=== PATIENT | male | born 1985 | race Caucasian/White ===

== ENCOUNTER 2017-01-23 08:32 | Emergency (ER) | payer SELFPAY ==
[~2017-01-23] VITALS: Ht 172.7 cm; Wt 70.0 kg
[2017-01-23 08:32] VITALS: BP 132/71; PULSE 100; RESP 20; TEMP 98.8; O2SAT 96
[2017-01-23] MEDS ORDERED: CLIN300C5 PO (09:27)
[2017-01-23] MEDS ORDERED: DOXY100C PO (09:27)
[2017-01-23] MEDS ORDERED: IBUP-232 PO (09:27)
--- NOTE | 2017-01-23 09:28 | PD ---
HPI Chief Complaint: Wound/Suture/Staple Re-Check Time Seen by Provider: 09:22 Travel History International Travel<30 days: No Contact w/Intl Traveler<30days: No Traveled to known affect area: No History of Present Illness HPI 31-year-old male who presents to emergency room for evaluation of possible spider bite to his back. Patient reports that his sister noticed a bug bite to his right mid back yesterday, reports that it looked like a pimple so she did pop it. Patient reports concerns as this "hurts me" and was afraid that it may have been an abscess. Patient reports no fevers or chills, reports that his tetanus is not up-to-date. Patient reports the throbbing sensation to his mid right back with this "bite" is located. PFSH Past Medical History Heart Rhythm Problems: Yes (heart murmur) Past Surgical History Surgical History: No Previous Surgery Social History Alcohol Use: No Tobacco Use: Yes (1/2 ppd) Substance Use: No Allergies-Medications (Allergen,Severity, Reaction): Coded Allergies: ciprofloxacin (Verified Allergy, Severe, Hives, 01/23/17) sulfamethoxazole (Verified Allergy, Severe, Hives, 01/23/17) trimethoprim (Verified Allergy, Severe, Hives, 01/23/17) Reported Meds & Prescriptions Reported Meds & Active Scripts Active Ibuprofen 600 Mg Tab 600 Mg PO Q6H PRN Doxycycline Hyclate 100 Mg Cap 100 Mg PO BID 10 Days Clindamycin (Clindamycin HCl) 300 Mg Cap 300 Mg PO Q6H 10 Days Review of Systems General / Constitutional: No: Fever, Chills Eyes: No: Visual changes HENT: No: Headaches Cardiovascular: No: Chest Pain or Discomfort Respiratory: No: Shortness of Breath Gastrointestinal: No: Abdominal Pain Genitourinary: No: Dysuria Musculoskeletal: No: Pain Skin: Positive Other ("Abscess"), No Rash Neurologic: No: Weakness Psychiatric: No: Depression Endocrine: No: Polydipsia Hematologic/Lymphatic: No: Easy Bruising Physical Exam Narrative GENERAL: Well-nourished, well-developed patient. SKIN: Focused skin assessment warm/dry. Patient with 0.3x0.3cm nonfluctuant abscess to right mid back with no erythema or obvious cellulitis. there is no streaking HEAD: Normocephalic. EYES: No scleral icterus. No injection or drainage. NECK: Supple, trachea midline. No JVD or lymphadenopathy. CARDIOVASCULAR: Regular rate and rhythm without murmurs, gallops, or rubs. RESPIRATORY: Breath sounds equal bilaterally. No accessory muscle use. GASTROINTESTINAL: Abdomen soft, non-tender, nondistended. MUSCULOSKELETAL: No cyanosis, or edema. BACK: Nontender without obvious deformity. No CVA tenderness. Data Data Last Documented VS Vital Signs Date Time Temp Pulse Resp B/P (MAP) Pulse Ox O2 Delivery O2 Flow Rate FiO2 01/23/17 08:32 98.8 100 20 132/71 (91) 96 Room Air Orders Orders Clindamycin (Cleocin) (01/23/17 09:30) Doxycycline (Vibratab) (01/23/17 09:30) [id number] (Booster) Inj (Boostrix (01/23/17 09:30) Ibuprofen (Motrin) (01/23/17 09:30) MDM Medical Decision Making Medical Screen Exam Complete: Yes Emergency Medical Condition: Yes Medical Record Reviewed: Yes Interpretation(s) Vital Signs Date Time Temp Pulse Resp B/P (MAP) Pulse Ox O2 Delivery O2 Flow Rate FiO2 01/23/17 08:32 98.8 100 20 132/71 (91) 96 Room Air Differential Diagnosis Abscess Narrative Course 31-year-old male with nonfluctuant abscess to his right mid back. Discussed need for warm compresses. We'll update patient's tetanus and start on antibiotics. Patient will follow-up with his primary care doctor and return to the emergency room or his primary care doctor in 48 hours for wound check. He will return to emergency room if he develops worsening or progressing symptoms including fever or chills. Diagnosis Primary Impression: Abscess Patient Instructions: General Instructions Additional Instructions: Please take all antibiotics as prescribed Please follow-up with your primary care doctor in 2-3 days Return to the emergency room symptoms worsen or progress Return to the emergency room as needed Return to the emergency room or to primary care doctor in 48 hours for wound check Med/Other Pt SpecificInfo: Prescription(s) given Scripts Ibuprofen (Ibuprofen) 600 Mg Tab 600 MG PO Q6H Y for Pain/Inflammation, #40 TAB 0 Refills Prov: Hyacinth Quiles DO 01/23/17 Doxycycline Hyclate (Doxycycline Hyclate) 100 Mg Cap 100 MG PO BID for Infection for 10 Days, #20 CAP 0 Refills Prov: Hyacinth Quiles DO 01/23/17 Clindamycin (Clindamycin) 300 Mg Cap 300 MG PO Q6H for Infection for 10 Days, #40 CAP 0 Refills Prov: Hyacinth Quiles DO 01/23/17 Disposition: 01 DISCHARGE HOME Condition: Stable Hyacinth Quiles DO Jan 23, 2017 09:28
[2017-01-23] MEDS ORDERED: DOXYCYCLINE HYCLATE 100 MG TAB PO ONE (09:30)
[2017-01-23] MEDS ORDERED: IBUPROFEN 600 MG TAB PO ONE (09:30)
[2017-01-23] MEDS ORDERED: DIPHTH/TETANUS/ACEL PERTUSSIS (BOOSTER) 0.5 ML VIAL/PFS IM ONE (09:30)
[2017-01-23] MEDS ORDERED: CLINDAMYCIN 150 MG CAP PO ONE (09:30)
== END 2017-01-23 09:53 | disposition home or self-care (01) ==
LOC: NEPE 08:32
DX: L02.212 Cutaneous abscess of back [any part, except buttock and flank] (principal); Z23 Encounter for immunization
CPT/HCPCS: 90471; 90715